=== PATIENT | male | born 1965 | race African-American/Black ===

== ENCOUNTER 2017-03-18 15:40 | Emergency (ER) | payer OTHER ==
[~2017-03-18] VITALS: Ht 180.3 cm; Wt 86.2 kg
[2017-03-18 16:04] VITALS: BP 141/85
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
[2017-03-18] MEDS ORDERED: CYCL10TA2 PO (16:56)
[2017-03-18] MEDS ORDERED: CYCLOBENZAPRINE 10 MG TABLET. PO ONE (17:00)
[2017-03-18] MEDS ORDERED: IBUPROFEN 800 MG TABLET. PO ONE (17:00)
== END 2017-03-18 17:05 | disposition home or self-care (01) ==
LOC: ER 15:40
DX: M54.5 Low back pain (principal); M54.2 Cervicalgia; M54.6 Pain in thoracic spine; Z87.442 Personal history of urinary calculi; V49.49XA Driver injured in collision with other motor vehicles in traffic accident, initial encounter; Y93.89 Activity, other specified; Y92.89 Other specified places as the place of occurrence of the external cause; Y99.8 Other external cause status
CPT/HCPCS: 99283

== ENCOUNTER 2019-08-16 17:04 | Emergency (ER) | payer SELFPAY ==
[~2019-08-16] VITALS: Ht 180.3 cm; Wt 86.2 kg
[~2019-08-16 17:04] MED LIST: CYCL10TA2 PO
[2019-08-16 17:23] VITALS: BP 153/101
--- NOTE | 2019-08-16 17:30 | PHYS DOC ---
Past Medical History Past Medical History: Kidney Stone, Other Additional Past Medical Histor: BLOOD CLOTS Past Surgical History: Other Additional Past Surgical Histo: LITHOTRIPSY Alcohol Use: Occasionally Drug Use: None Adult General Chief Complaint Chief Complaint: COUGH HPI HPI Patient is a 54 year old female that presents to emergency department stating he's been having cough, and chills that been ongoing for 3 days. Patient also states his been having some runny nose and congestion as well. The patient rates his pain 8 out of 10 in severity and states the pain just from coughing. Denies taking medicine prior to arrival. Review of Systems Review of Systems Constitutional: Reports fever or chills [] Eyes: Denies change in visual acuity, redness, or eye pain [] HENT: Reports nasal congestion and runny nose. Respiratory: Reports cough. Cardiovascular: No additional information not addressed in HPI [] GI: Denies abdominal pain, nausea, vomiting, bloody stools or diarrhea [] : Denies dysuria or hematuria [] Musculoskeletal: Denies back pain or joint pain [] Integument: Denies rash or skin lesions [] Neurologic: Denies headache, focal weakness or sensory changes [] Endocrine: Denies polyuria or polydipsia [] Complete systems were reviewed and found to be within normal limits, except as documented in this note. Allergies Allergies Allergies Coded Allergies Type Severity Reaction Last Updated Verified No Known Drug Allergies 11/07/15 No Physical Exam Physical Exam Constitutional: Well developed, well nourished, no acute distress, non-toxic appearance. [] HENT: Normocephalic, atraumatic, bilateral external ears normal, tonsils are erythematous, oropharynx moist, no oral exudates, nose turbinates inflamed.] Eyes: PERRLA, EOMI, conjunctiva normal, no discharge. [] Neck: Normal range of motion, no tenderness, supple, no stridor. [] Cardiovascular:Heart rate regular rhythm, no murmur [] Lungs & Thorax: Bilateral breath sounds clear to auscultation [] Abdomen: Bowel sounds normal, soft, no tenderness, no masses, no pulsatile mas ses. [] Skin: Warm, dry, no erythema, no rash. [] Back: No tenderness, no CVA tenderness. [] Extremities: No tenderness, no cyanosis, no clubbing, ROM intact, no edema. [] Neurologic: Alert and oriented X 3, normal motor function, normal sensory function, no focal deficits noted. [] Psychologic: Affect normal, judgement normal, mood normal. [] Current Patient Data Vital Signs Vital Signs Date Time Temp Pulse Resp B/P (MAP) Pulse Ox O2 Delivery O2 Flow Rate FiO2 08/16/19 17:23 98.6 99 20 153/101 (118) 98 Room Air 98.6 Lab Values Laboratory Tests Test 08/16/19 17:50 White Blood Count 4.5 x10^3/uL (4.0-11.0) Red Blood Count 5.47 x10^6/uL (4.30-5.70) Hemoglobin 15.6 g/dL (13.0-17.5) Hematocrit 47.1 % (39.0-53.0) Mean Corpuscular Volume 86 fL (79-100) Mean Corpuscular Hemoglobin 29 pg (25-35) Mean Corpuscular Hemoglobin Concent 33 g/dL (31-37) Red Cell Distribution Width 14.0 % (11.5-14.5) Platelet Count 299 x10^3/uL (140-400) Neutrophils (%) (Auto) 37 % (31-73) Lymphocytes (%) (Auto) 48 % (24-48) Monocytes (%) (Auto) 8 % (0-9) Eosinophils (%) (Auto) 6 % (0-3) H Basophils (%) (Auto) 1 % (0-3) Neutrophils # (Auto) 1.7 x10^3/uL (1.8-7.7) L Lymphocytes # (Auto) 2.1 x10^3/uL (1.0-4.8) Monocytes # (Auto) 0.4 x10^3/uL (0.0-1.1) Eosinophils # (Auto) 0.3 x10^3/uL (0.0-0.7) Basophils # (Auto) 0.0 x10^3/uL (0.0-0.2) Sodium Level 142 mmol/L (136-145) Potassium Level 4.2 mmol/L (3.5-5.1) Chloride Level 106 mmol/L (98-107) Carbon Dioxide Level 25 mmol/L (21-32) Anion Gap 11 (6-14) Blood Urea Nitrogen 9 mg/dL (8-26) Creatinine 1.0 mg/dL (0.7-1.3) Estimated GFR (Cockcroft-Gault) 93.9 BUN/Creatinine Ratio 9 (6-20) Glucose Level 100 mg/dL (70-99) H Lactic Acid Level 0.9 mmol/L (0.4-2.0) Calcium Level 8.8 mg/dL (8.5-10.1) Total Bilirubin 0.5 mg/dL (0.2-1.0) Aspartate Amino Transferase (AST) 20 U/L (15-37) Alanine Aminotransferase (ALT) 36 U/L (16-63) Alkaline Phosphatase 59 U/L (46-116) Total Protein 8.1 g/dL (6.4-8.2) Albumin 4.0 g/dL (3.4-5.0) Albumin/Globulin Ratio 1.0 (1.0-1.7) Laboratory Tests 08/16/19 17:50 Laboratory Tests 08/16/19 17:50 EKG EKG [] Radiology/Procedures Radiology/Procedures [][facility] [address] [place] [address] IMAGING REPORT Signed PATIENT: DELFIN ZACARIAS ACCOUNT: [id number] : 1965 LOCATION: ER AGE: 54 SEX: M EXAM STATUS: REG ER ORD. PHYSICIAN: TOÑO FRENCH APRN REASON: cough, fever PROCEDURE: CHEST PA & LATERAL EXAM: Chest, 2 views. HISTORY: Cough and fever. COMPARISON: 11/08/2009 FINDINGS: 2 views of the chest are obtained. There is no infiltrate, pleural effusion or pneumothorax. The heart is normal in size. IMPRESSION: No acute pulmonary finding. Electronically signed by: Katerin Lopez MD (08/16/2019 5:52 PM) [facility] DICTATED and SIGNED BY: KATERIN LOPEZ MD DATE: 08/16/19 567 Course & Med Decision Making Course & Med Decision Making Pertinent Labs and Imaging studies reviewed. (See chart for details) Will get labs, and chest x-ray to evaluate for pneumonia. Labs and chest x-ray are unremarkable. Will d/c home. Appears to have URI. Maxime Disclaimer Maxime Disclaimer This electronic medical record was generated, in whole or in part, using a voice recognition dictation system. Departure Departure Impression: Primary Impression: Cough Disposition: HOME, SELF-CARE Condition: STABLE Referrals: UNKNOWN PCP NAME (PCP) Patient Instructions: Cough, Adult Additional Instructions: Thank you for visiting [facility]. We appreciate you trusting us with your care. If any additional problems come up don't hesitate to return to visit us. Please follow up with your primary care provider so they can plan additional care if needed and know about the problem that you had. If symptoms worsen come back to the Emergency Department. Any concerning symptoms that start such as chest pain, shortness of air, weakness or numbness on one side of the body, running high fevers or any other concerning symptoms return to the ER. Please fill your medications at any pharmacy and follow the prescription instructions. Please take Zyrtec and Mucinex per label instructions. Scripts Benzonatate (TESSALON PERLE) 100 Mg Capsule 1 CAP PO TID PRN for COUGH, #21 CAP Prov: TOÑO FRENCH APRN 08/16/19 TOÑO FRENCH APRN Aug 16, 2019 17:30
--- NOTE | 2019-08-16 17:54 | RAD ---
EXAM: Chest, 2 views. HISTORY: Cough and fever. COMPARISON: 11/08/2009 FINDINGS: 2 views of the chest are obtained. There is no infiltrate, pleural effusion or pneumothorax. The heart is normal in size. IMPRESSION: No acute pulmonary finding. Electronically signed by: Katerin Lopez MD (08/16/2019 5:52 PM) [facility]
[2019-08-16 18:11] LABS: BASO % 1 % (0-3); EOS # 0.3 x10^3/uL (0.0-0.7); EOS % 6 % (0-3); HEMATOCRIT 47.1 % (39.0-53.0); HEMOGLOBIN 15.6 g/dL (13.0-17.5); LYMPH # 2.1 x10^3/uL (1.0-4.8); LYMPH % 48 % (24-48); MEAN CORPUSCULAR HEMOGLOBIN 29 pg (25-35); MEAN CORPUSCULAR HGB CONC 33 g/dL (31-37); MEAN CORPUSCULAR VOLUME 86 fL (79-100); MONO # 0.4 x10^3/uL (0.0-1.1); MONO % 8 % (0-9); NEUT # 1.7 x10^3/uL (1.8-7.7); NEUT % 37 % (31-73); PLATELET COUNT 299 x10^3/uL (140-400); RED BLOOD COUNT 5.47 x10^6/uL (4.30-5.70); WHITE BLOOD COUNT 4.5 x10^3/uL (4.0-11.0)
[2019-08-16 18:19] LABS: CALCIUM 8.8 mg/dL (8.5-10.1); GFR 93.9; POTASSIUM 4.2 mmol/L (3.5-5.1)
[2019-08-16 18:33] LABS: TOTAL BILIRUBIN 0.5 mg/dL (0.2-1.0); TOTAL PROTEIN 8.1 g/dL (6.4-8.2)
[2019-08-16] MEDS ORDERED: DEXAMETHASONE 4 MG TABLET PO STA (18:58)
[2019-08-16] MEDS ORDERED: BENZ100C PO (19:00)
== END 2019-08-16 19:16 | disposition home or self-care (01) ==
LOC: ER 17:04
DX: R05 Cough (principal); R50.9 Fever, unspecified; R09.81 Nasal congestion; R09.89 Other specified symptoms and signs involving the circulatory and respiratory systems
CPT/HCPCS: 36415; 71046; 80053; 83605; 85025; 99285; J8540

== ENCOUNTER 2019-09-20 15:19 | Emergency (ER) | payer SELFPAY ==
[~2019-09-20] VITALS: Ht 180.3 cm; Wt 86.2 kg
[~2019-09-20 15:19] MED LIST changes: +BENZ100C PO
[2019-09-20] MEDS ORDERED: ORPHENADRINE CITRATE 60 MG/2 ML VIAL. IV ONE (16:45)
[2019-09-20] MEDS ORDERED: KETOROLAC 15 MG/ML VIAL. IV ONE (16:45)
[2019-09-20] MEDS ORDERED: ORPHENADRINE CITRATE 60 MG/2 ML VIAL. IM ONE (16:45)
[2019-09-20] MEDS ORDERED: KETOROLAC 60 MG/2 ML VIAL. IM ONE (16:45)
[2019-09-20 16:47] LABS: BILIRUBIN,URINE NEGATIVE (NEG); CLARITY,URINE CLEAR; COLOR,URINE YELLOW; NITRITE,URINE NEGATIVE (NEG); PH,URINE 5.5; PROTEIN,URINE NEGATIVE (NEG-TRACE); UROBILINOGEN,URINE 0.2 mg/dL (0.2 mg/dL)
[2019-09-20 16:59] LABS: BACTERIA,URINE 0 /HPF (0-FEW); RBC,URINE RARE /HPF (0-2); WBC,URINE RARE /HPF (0-4)
--- NOTE | 2019-09-20 17:10 | PHYS DOC ---
Past Medical History Past Medical History: Kidney Stone, Other Additional Past Medical Histor: BLOOD CLOTS Past Surgical History: Other Additional Past Surgical Histo: LITHOTRIPSY Alcohol Use: Occasionally Drug Use: None Adult General Chief Complaint Chief Complaint: BACK PAIN - NO INJURY HPI HPI Patient is a 54 year old AA male who presents to the emergency department with complaints of low back pain that radiates into his left groin and left leg for the last 3 days. Patient denies any recent injury or heavy lifting. He denies any saddle anesthesia or loss of bowel/bladder control. Patient states that the pain increases when he moves or tries to lift his left leg. He denies any increased urinary frequency, hematuria, dysuria, or bowel/bladder incontinence. Currently rates his discomfort a 10 out of 10 on the pain scale, he denies any alleviating factors. Patient also denies any chest pain, dizziness, shortness of breath, fever, numbness, tingling, or weakness. All other ROS is neg unless otherwise noted in HPI. Review of Systems Review of Systems See Above Current Medications Current Medications Current Medications Medications (Trade) Dose Ordered Sig/Miguelangel Start Time Stop Time Status Last Admin Dose Admin Ketorolac Tromethamine (Toradol 15mg Vial) 30 mg 1X ONCE 09/20/19 16:45 09/20/19 16:46 DC 09/20/19 16:56 30 MG Ketorolac Tromethamine (Toradol Im) 30 mg 1X ONCE 09/20/19 16:45 09/20/19 16:36 DC Orphenadrine Citrate (Norflex) 60 mg 1X ONCE 09/20/19 16:45 09/20/19 16:46 DC 09/20/19 16:56 60 MG Allergies Allergies Allergies Coded Allergies Type Severity Reaction Last Updated Verified No Known Drug Allergies 11/07/15 No Physical Exam Physical Exam See Above Constitutional: Well developed, well nourished, no acute distress, non-toxic appearance. [] HENT: Normocephalic, atraumatic, bilateral external ears normal, nose normal. [] Eyes: PERRLA, EOMI, conjunctiva normal, no discharge. [] Neck: Normal range of motion, no stridor. [] Cardiovascular:Heart rate regular tachycardic rhythm, no murmur [] Lungs & Thorax: Bilateral breath sounds clear to auscultation [] Abdomen: soft, no tenderness, no masses Skin: Warm, dry, no erythema, no rash. [] Back: Bilateral lumbar paraspinal TTP and no bony tenderness, no CVA tenderness; reports increased pain with straight leg left of left leg. [] Extremities: No cyanosis, ROM intact, no edema. [] Neurologic: Alert and oriented X 3, no focal deficits noted. [] Psychologic: Affect normal, judgement normal, mood normal. [] Current Patient Data Vital Signs Vital Signs Date Time Temp Pulse Resp B/P (MAP) Pulse Ox O2 Delivery O2 Flow Rate FiO2 09/20/19 16:15 98.9 131 18 150/106 (121) 97 Room Air 98.9 Lab Values Laboratory Tests Test 09/20/19 16:15 Urine Collection Type Void Urine Color Yellow Urine Clarity Clear Urine pH 5.5 Urine Specific [place] 1.020 Urine Protein Negative mg/dL (NEG-TRACE) Urine Glucose (UA) Negative mg/dL (NEG) Urine Ketones (Stick) Negative mg/dL (NEG) Urine Blood Negative (NEG) Urine Nitrite Negative (NEG) Urine Bilirubin Negative (NEG) Urine Urobilinogen Dipstick 0.2 mg/dL (0.2 mg/dL) Urine Leukocyte Esterase Negative (NEG) Urine RBC Rare /HPF (0-2) Urine WBC Rare /HPF (0-4) Urine Squamous Epithelial Cells None /LPF Urine Bacteria 0 /HPF (0-FEW) Urine Mucus Marked /LPF EKG EKG 1659- sinus tachycardia rate 108 with left atrial abnormality, left anterior fascicular block, no STEMI, read by Dr. Olson.[] Radiology/Procedures Radiology/Procedures [] Course & Med Decision Making Course & Med Decision Making Pertinent Labs and Imaging studies reviewed. (See chart for details) is 54-year-old -[place] male who presented to the emergency department with complaints of low back pain for the last 3 days it radiated into his left leg and increased with movement. His heart rate was in the 130s on arrival. EKG was done that showed sinus tachycardia no acute ST changes. He was given 2 mg of IV Norflex and 30 mg of IV Toradol. Patient reported that his pain was decreasing after those medications. The patient's heart rate decreased to 102 and his blood pressure was normal. Prescriptions written for naproxen and Flexeril. Patient was instructed to follow-up with his primary care doctor for further evaluation and treatment of his back pain. Patient verbalized an un derstanding of home care, medications, follow-up, and return to ED instructions and was in agreement with the plan of care. [] Dragon Disclaimer Dragon Disclaimer This electronic medical record was generated, in whole or in part, using a voice recognition dictation system. Departure Departure Impression: Primary Impression: Acute low back pain with left-sided sciatica Disposition: HOME, SELF-CARE Condition: STABLE Referrals: VIRGINIA CRUZ,AYANNA Moreno MD (PCP) Patient Instructions: Back Pain, Adult, [id number], Sciatica with Rehab- [facility] Additional Instructions: Fill the prescription(s) and use as directed. Apply heat or ice for to sore areas as needed for comfort. Activity as tolerated. Follow up with your primary care doctor this week if symptoms persist, return to the ER if symptoms worsen. Scripts Naproxen (NAPROXEN) 500 Mg Tablet 1 TAB PO BID PRN for PAIN for 10 Days, #20 TAB 0 Refills Prov: JAKI JACKSON APRN 09/20/19 Cyclobenzaprine Hcl (CYCLOBENZAPRINE HCL) 10 Mg Tablet 10 MG PO TID PRN for PAIN for 10 Days, #30 TAB 0 Refills Prov: JAKI JACKSON APRN 09/20/19 Problem Qualifiers Primary Impression: Acute low back pain with left-sided sciatica Back pain laterality: bilateral Qualified Codes: M54.42 - Lumbago with sciatica, left side JAKI JACKSON APRN Sep 20, 2019 17:10
[2019-09-20] MEDS ORDERED: CYCL10TA2 PO (17:40)
[2019-09-20] MEDS ORDERED: NAPR-514 PO (17:40)
[2019-09-20 17:45] VITALS: BP 152/90
--- NOTE | 2019-09-21 07:28 | EKG ---
[facility] [address] [place] [address] Test Date: 2019-09-20 Test Time: 16:59:04 Pat Name: DELFIN ZACARIAS Department: Room: Gender: Superintendent House: : 1965 Requested By: JAKI JACKSON Order Number: [id number] Reading MD: Measurements Intervals [place] Rate: 107 P: 33 AK: 152 QRS: -114 QRSD: 86 T: 61 QT: 320 QTc: 432 Interpretive Statements SINUS TACHYCARDIA LEFT ATRIAL ABNORMALITY ABNORMAL RIGHT SUPERIOR AXIS DEVIATION R-S TRANSITION ZONE IN V LEADS DISPLACED TO THE LEFT S1,S2,S3 PATTERN LEFT ANTERIOR FASCICULAR BLOCK ABNORMAL ECG No previous ECG available for comparison
== END 2019-09-20 18:06 | disposition home or self-care (01) ==
LOC: ER 15:19
DX: M54.42 Lumbago with sciatica, left side (principal); Z87.442 Personal history of urinary calculi; Z98.890 Other specified postprocedural states
CPT/HCPCS: 81001; 93005; 96374; 96375; 99285; J1885; J2360

== ENCOUNTER 2020-01-20 16:45 | Emergency (ER) | payer SELFPAY ==
[~2020-01-20] VITALS: Ht 180.3 cm; Wt 80.0 kg
[~2020-01-20 16:45] MED LIST changes: +NAPR-514 PO
--- NOTE | 2020-01-20 17:00 | PHYS DOC ---
Past Medical History Past Medical History: Kidney Stone, Other Additional Past Medical Histor: BLOOD CLOTS (DARYL FRENCH APRN) Past Surgical History: Other Additional Past Surgical Histo: LITHOTRIPSY (DARYL FRECNH APRN) Smoking Status: Never Smoker Alcohol Use: Occasionally Drug Use: None (DARYL FRENCH APRN) Adult General Chief Complaint Chief Complaint: SHORTNESS OF BREATH [facility] HPI Patient is a 54 year old male who presents with cough and shortness of breath is been ongoing for last several days. Patient has subjective fever, denies any nausea, vomiting, diarrhea, loss of taste, loss of smell, fatigue. Patient's got tachycardia on arrival to the ER. States he attributed the shortness of breath due to smoking. Patient states he is a former smoker. Patient also has a history of blood clots. Denies any sick contacts or travel. Complete ROS were reviewed and found to be within normal limits, except as documented in the HPI (DARYL FRENCH APRN) Current Medications Current Medications Current Medications Medications (Trade) Dose Ordered Sig/Miguelangel Start Time Stop Time Status Last Admin Dose Admin Iohexol (Omnipaque 350 Mg/ml) 100 ml 1X ONCE 01/20/20 19:15 01/20/20 19:23 DC Sodium Chloride 500 ml @ 500 mls/hr 1X ONCE 01/20/20 18:30 01/20/20 19:29 DC 01/20/20 19:08 500 MLS/HR (GOLLAPALLI,DERREK E DO) Allergies Allergies Allergies Coded Allergies Type Severity Reaction Last Updated Verified No Known Drug Allergies 11/07/15 No (BRITTADERREK E DO) Physical Exam Physical Exam Constitutional: Well developed, well nourished, no acute distress, non-toxic appearance. [] HENT: Normocephalic, atraumatic, bilateral external ears normal, oropharynx moist, no oral exudates, nose normal. [] Cardiovascular:Heart rate regular rhythm, no murmur [] Lungs & Thorax: Bilateral breath sounds clear to auscultation [] Neurologic: Alert and oriented X 3, normal motor function, normal sensory function, no focal deficits noted. [] Psychologic: Affect normal, judgement normal, mood normal. [] (DARYL FRENCH APRN) Current Patient Data Vital Signs Vital Signs Date Time Temp Pulse Resp B/P (MAP) Pulse Ox O2 Delivery O2 Flow Rate FiO2 01/20/20 21:00 90 164/101 (122) 97 01/20/20 16:50 99.0 18 Room Air 99.0 ([facility] Lab Values Laboratory Tests Test 01/20/20 17:20 White Blood Count 3.7 x10^3/uL (4.0-11.0) L Red Blood Count 5.02 x10^6/uL (4.30-5.70) Hemoglobin 14.6 g/dL (13.0-17.5) Hematocrit 43.4 % (39.0-53.0) Mean Corpuscular Volume 87 fL (79-100) Mean Corpuscular Hemoglobin 29 pg (25-35) Mean Corpuscular Hemoglobin Concent 34 g/dL (31-37) Red Cell Distribution Width 13.7 % (11.5-14.5) Platelet Count 268 x10^3/uL (140-400) Neutrophils (%) (Auto) 50 % (31-73) Lymphocytes (%) (Auto) 40 % (24-48) Monocytes (%) (Auto) 6 % (0-9) Eosinophils (%) (Auto) 4 % (0-3) H Basophils (%) (Auto) 0 % (0-3) Neutrophils # (Auto) 1.9 x10^3/uL (1.8-7.7) Lymphocytes # (Auto) 1.5 x10^3/uL (1.0-4.8) Monocytes # (Auto) 0.2 x10^3/uL (0.0-1.1) Eosinophils # (Auto) 0.1 x10^3/uL (0.0-0.7) Basophils # (Auto) 0.0 x10^3/uL (0.0-0.2) Prothrombin Time 12.4 SEC (11.7-14.0) Prothrombin Time INR 1.0 (0.8-1.1) Activated Partial Thromboplast Time 25 SEC (24-38) D-Dimer (Anita) < 0.27 ug/mlFEU Sodium Level 142 mmol/L (136-145) Potassium Level 3.8 mmol/L (3.5-5.1) Chloride Level 106 mmol/L (98-107) Carbon Dioxide Level 27 mmol/L (21-32) Anion Gap 9 (6-14) Blood Urea Nitrogen 12 mg/dL (8-26) Creatinine 1.3 mg/dL (0.7-1.3) Estimated GFR (Cockcroft-Gault) 69.3 BUN/Creatinine Ratio 9 (6-20) Glucose Level 201 mg/dL (70-99) H Lactic Acid Level 3.6 mmol/L (0.4-2.0) H Calcium Level 8.3 mg/dL (8.5-10.1) L Total Bilirubin 0.3 mg/dL (0.2-1.0) Aspartate Amino Transferase (AST) 24 U/L (15-37) Alanine Aminotransferase (ALT) 45 U/L (16-63) Alkaline Phosphatase 48 U/L (46-116) Troponin I Quantitative < 0.017 ng/mL (0.000-0.055) JW-Rsp-X-Type Natriuretic Peptide 27 pg/mL (0-124) Total Protein 6.6 g/dL (6.4-8.2) Albumin 3.4 g/dL (3.4-5.0) Albumin/Globulin Ratio 1.1 (1.0-1.7) Procalcitonin < 0.10 ng/mL (0.00-0.10) Laboratory Tests 01/20/20 17:20 Laboratory Tests 01/20/20 17:20 ([facility] ) Lab Values Laboratory Tests Test 01/20/20 17:20 White Blood Count 3.7 x10^3/uL (4.0-11.0) L Red Blood Count 5.02 x10^6/uL (4.30-5.70) Hemoglobin 14.6 g/dL (13.0-17.5) Hematocrit 43.4 % (39.0-53.0) Mean Corpuscular Volume 87 fL (79-100) Mean Corpuscular Hemoglobin 29 pg (25-35) Mean Corpuscular Hemoglobin Concent 34 g/dL (31-37) Red Cell Distribution Width 13.7 % (11.5-14.5) Platelet Count 268 x10^3/uL (140-400) Neutrophils (%) (Auto) 50 % (31-73) Lymphocytes (%) (Auto) 40 % (24-48) Monocytes (%) (Auto) 6 % (0-9) Eosinophils (%) (Auto) 4 % (0-3) H Basophils (%) (Auto) 0 % (0-3) Neutrophils # (Auto) 1.9 x10^3/uL (1.8-7.7) Lymphocytes # (Auto) 1.5 x10^3/uL (1.0-4.8) Monocytes # (Auto) 0.2 x10^3/uL (0.0-1.1) Eosinophils # (Auto) 0.1 x10^3/uL (0.0-0.7) Basophils # (Auto) 0.0 x10^3/uL (0.0-0.2) Prothrombin Time 12.4 SEC (11.7-14.0) Prothrombin Time INR 1.0 (0.8-1.1) Activated Partial Thromboplast Time 25 SEC (24-38) D-Dimer (Anita) < 0.27 ug/mlFEU Sodium Level 142 mmol/L (136-145) Potassium Level 3.8 mmol/L (3.5-5.1) Chloride Level 106 mmol/L (98-107) Carbon Dioxide Level 27 mmol/L (21-32) Anion Gap 9 (6-14) Blood Urea Nitrogen 12 mg/dL (8-26) Creatinine 1.3 mg/dL (0.7-1.3) Estimated GFR (Cockcroft-Gault) 69.3 BUN/Creatinine Ratio 9 (6-20) Glucose Level 201 mg/dL (70-99) H Lactic Acid Level 3.6 mmol/L (0.4-2.0) H Calcium Level 8.3 mg/dL (8.5-10.1) L Total Bilirubin 0.3 mg/dL (0.2-1.0) Aspartate Amino Transferase (AST) 24 U/L (15-37) Alanine Aminotransferase (ALT) 45 U/L (16-63) Alkaline Phosphatase 48 U/L (46-116) Troponin I Quantitative < 0.017 ng/mL (0.000-0.055) YJ-Mga-F-Type Natriuretic Peptide 27 pg/mL (0-124) Total Protein 6.6 g/dL (6.4-8.2) Albumin 3.4 g/dL (3.4-5.0) Albumin/Globulin Ratio 1.1 (1.0-1.7) Procalcitonin < 0.10 ng/mL (0.00-0.10) Laboratory Tests 01/20/20 17:20 Laboratory Tests 01/20/20 17:20 (DARYL FRENCH APRN) EKG EKG EKG interpreted by Dr. Lind Sinus tachycardia with rate of 116. (DARYL FRENCH APRN) Radiology/Procedures Radiology/Procedures [facility] [address] [place] [address] IMAGING REPORT Signed PATIENT: DELFIN ZACARIAS ACCOUNT: [id number] : 1965 LOCATION: ER AGE: 54 SEX: M EXAM STATUS: REG ER ORD. PHYSICIAN: DARYL FRENCH APRN REASON: shortness of breath, tachycardia, hx of blood clots PROCEDURE: CT ANGIOGRAPHY CHEST CTA scan of the Chest with Contrast (Pulmonary Embolism protocol) 01/20/2020 Clinical History: Shortness of breath. Tachycardia. Technique: After the intravenous administration of 800 cc of Omnipaque 300, contiguous, 0.625 mm axial sections were obtained through the chest. 2 mm axial and 3D MIP coronal and sagittal reconstructed images were obtained. One or more of the following individualized dose reduction techniques were utilized for this study: 1. Automated exposure control. 2. Adjustment of the mA and/or kV according to patient size. 3. Use of iterative reconstruction technique. Findings: There is an is made to portable chest radiograph performed earlier today. Suboptimal opacification of the pulmonary arteries with contrast is seen limiting the sensitivity of this study. No definite filling defect is seen within the major branches of either pulmonary artery. There is no definite CT evidence of pulmonary embolism. The heart is normal in size. The thoracic aorta tapers normally. Calcified right hilar lymph nodes are seen. Minimal dependent subsegmental atelectasis is seen involving both lungs. No area of consolidation, pleural effusion or pneumothorax is seen. A 7 mm calcified granuloma seen involving the right lower lobe. Impression: There is no definite CT evidence of pulmonary embolism. Electronically signed by: Medhat Berg MD (01/20/2020 8:04 PM) [id number] DICTATED and SIGNED BY: MEDHAT BERG MD DATE: 01/20/202003 [][facility] [address] [place] [address] IMAGING REPORT Signed PATIENT: DELFIN ZACARIAS ACCOUNT: [id number] : 1965 LOCATION: ER AGE: 54 SEX: M EXAM STATUS: REG ER ORD. PHYSICIAN: DARYL FRENCH APRN REASON: cough, shortness of breath PROCEDURE: PORTABLE CHEST 1V Single view chest dated 01/20/2020: Comparison made to 08/16/2019. Clinical Indication: Cough and shortness of breath. Findings: Single upright portable exam of the chest was performed. Heart size and mediastinal contours are within normal limits given technique. The lungs are clear without evidence of focal consolidation. Vascular interstitium is within normal limits. Impression:: Negative portable chest. Electronically signed by: Daryl Manzano MD (01/20/2020 5:48 PM) [id number] DICTATED and SIGNED BY: DARYL MANZANO MD DATE: 01/20/20 1748 (DARYL FRENCH APRN) Course & Med Decision Making Course & Med Decision Making Pertinent Labs and Imaging studies reviewed. (See chart for details) We will get chest x-ray, labs, including d-dimer, EKG. Also give a bag of fluids. Work-up was unremarkable however I determined that the patient has a history of blood clots. This does not rule out a PE even though the d-dimer is negative. I did show the high risk patients with a negative d-dimer can have a PE up to 31% of the time. Consult Dr. Lind who agreed that a CT was appropriate. Lactic acid is elevated likely due to dehydration. Work-up is otherwise unremarkable. Neutrophils are not elevated, lymphocytes are not elevated, white blood cell count is only 3.7. CTA of the chest is unremarkable. The patient's heart rate has gone down fluids likely patient was dehydrated. Discussed admission versus going home with the patient patient agrees and is shared decision making that he would like to go home. We will discharge the patient home. Gave instructions to self isolate at home, also gave instructions of his shortness of breath gets worse to return to the ER. (DARYL FRENCH APRN) Dragon Disclaimer Dragon Disclaimer This electronic medical record was generated, in whole or in part, using a voice recognition dictation system. (DARYL FRENCH APRN) Attending Signature I have participated in the care of this patient and I have reviewed and agree with all pertinent clinical information above including history, exam, and recommendations. (DERREK CALLEJAS DO) Departure Departure Impression: Primary Impression: Suspected 2019 novel coronavirus infection Disposition: HOME, SELF-CARE Condition: STABLE Referrals: AYANNA COLEMAN SR, MD (PCP) Patient Instructions: Viral Syndrome Additional Instructions: Thank you for visiting [facility] We appreciate you trusting us with your care. If any additional problems come up don't hesitate to return to visit us. Please follow up with your primary care provider so they can plan additional care if needed and know about the problem that you had. If symptoms worsen come back to the Emergency Department. Any concerning symptoms that start such as chest pain, shortness of air, weakness or numbness on one side of the body, running high fevers or any other concerning symptoms return to the ER. You have a viral syndrome which may include symptoms like muscle aches, fevers, chills, runny nose, cough, sneezing, sore throat, vomiting, or diarrhea. One of the potential viruses that you may have is SARS-CoV-2, the virus that causes C OVID-19, also known as the Coronavirus. You are just as likely to have a different viral infection such as the common cold, flu, etc. Most patients with the Coronavirus have mild symptoms and recover on their own. Resting, staying hydrated, and sleep from known cases can be helpful. As of todays visit, you are well enough to go home and treat your symptoms with oral fluids and over the counter medications. Coronavirus testing is not performed on most people with mild symptoms who are being discharged from the emergency department. If Coronavirus testing was performed the results will not be available for possibly up to 2-3 days. If your result is positive you will be contacted. Please follow the following precautions at home: 1) Stay home except to get medical care. 2) As advised by the CDC we recommend you stay in your home and minimize contact with other people. We do not want you to spread the infection. 3) Those who are older or have significant medical issues may have more severe symptoms from this infection. We recommend self-isolation,FOR AT LEAST 7 DAYS after your 1st day of symptoms. AFTER you feel better please wait AT LEAST ANOTHER WEEK before returning to regular activities and being around other people! 4) IF you become sicker and have difficulty breathing, chest pain, unable to eat/drink, severe vomiting, diarrhea, or weakness you may need to return to the Emergency Department. 5) You should restrict activities outside your home, except for getting medic al care. DO NOT go to work, school, or public areas. Avoid using public transportation, ride sharing, or taxis. 6) Separate yourself from other people in your home. You should use a separate bathroom if possible. 7) Avoid sharing personal household items such as dishes, cups, eating utensils, towels, etc. 8) Clean all high touch surfaces every day (door knobs, counter tops, etc). Use a household cleaning spray or wipe per label instructions. 9) Clean your hands often. Wash your hands with soap and water for at least 20 seconds. 10) Cover your mouth and nose with a tissue when you cough or sneeze. 11) Throw used tissues in a trash can and immediately wash your hands. For additional resources please visit the CDC website or the [facility] ([phone]). DARYL FRENCH APRN Jan 20, 2020 17:00 DERREK CALLEJAS DO Jan 21, 2020 08:17
[2020-01-20] MEDS: IV NORMAL SALINE 1000ML BAG 1,000 ML IV ONE ×2 (17:20→19:08)
[2020-01-20 17:33] LABS: BASO % 0 % (0-3); EOS # 0.1 x10^3/uL (0.0-0.7); EOS % 4 % (0-3); HEMATOCRIT 43.4 % (39.0-53.0); HEMOGLOBIN 14.6 g/dL (13.0-17.5); LYMPH # 1.5 x10^3/uL (1.0-4.8); LYMPH % 40 % (24-48); MEAN CORPUSCULAR HEMOGLOBIN 29 pg (25-35); MEAN CORPUSCULAR HGB CONC 34 g/dL (31-37); MEAN CORPUSCULAR VOLUME 87 fL (79-100); MONO # 0.2 x10^3/uL (0.0-1.1); MONO % 6 % (0-9); NEUT # 1.9 x10^3/uL (1.8-7.7); NEUT % 50 % (31-73); PLATELET COUNT 268 x10^3/uL (140-400); RED BLOOD COUNT 5.02 x10^6/uL (4.30-5.70); RED CELL DISTRIBUTION WIDTH 13.7 % (11.5-14.5); WHITE BLOOD COUNT 3.7 x10^3/uL (4.0-11.0)
[2020-01-20 17:43] LABS: CALCIUM 8.3 mg/dL (8.5-10.1); CREATININE 1.3 mg/dL (0.7-1.3); GFR 69.3; POTASSIUM 3.8 mmol/L (3.5-5.1)
[2020-01-20 17:45] LABS: PARTIAL THROMBOPLASTIN TIME 25 SEC (24-38); PROTHROMBIN TIME PATIENT 12.4 SEC (11.7-14.0)
[2020-01-20 17:49] LABS: ALBUMIN 3.4 g/dL (3.4-5.0); ALBUMIN/GLOBULIN RATIO 1.1 (1.0-1.7); TOTAL BILIRUBIN 0.3 mg/dL (0.2-1.0); TOTAL PROTEIN 6.6 g/dL (6.4-8.2)
--- NOTE | 2020-01-20 17:50 | RAD ---
Single view chest dated 01/20/2020: Comparison made to 08/16/2019. Clinical Indication: Cough and shortness of breath. Findings: Single upright portable exam of the chest was performed. Heart size and mediastinal contours are within normal limits given technique. The lungs are clear without evidence of focal consolidation. Vascular interstitium is within normal limits. Impression:: Negative portable chest. Electronically signed by: Daryl Manzano MD (01/20/2020 5:48 PM) [id number]
[2020-01-20 18:11] LABS: D-DIMER < 0.27 ug/mlFEU (0.00-0.50)
[2020-01-20] MEDS: IV NORMAL SALINE 500ML BAG 500 ML IV ONE (19:08)
[2020-01-20] MEDS ORDERED: IOHEXOL 350 MG/ML 100 ML VIAL. IV ONE (19:15)
--- NOTE | 2020-01-20 20:07 | RAD ---
CTA scan of the Chest with Contrast (Pulmonary Embolism protocol) 01/20/2020 Clinical History: Shortness of breath. Tachycardia. Technique: After the intravenous administration of 800 cc of Omnipaque 300, contiguous, 0.625 mm axial sections were obtained through the chest. 2 mm axial and 3D MIP coronal and sagittal reconstructed images were obtained. One or more of the following individualized dose reduction techniques were utilized for this study: 1. Automated exposure control. 2. Adjustment of the mA and/or kV according to patient size. 3. Use of iterative reconstruction technique. Findings: There is an is made to portable chest radiograph performed earlier today. Suboptimal opacification of the pulmonary arteries with contrast is seen limiting the sensitivity of this study. No definite filling defect is seen within the major branches of either pulmonary artery. There is no definite CT evidence of pulmonary embolism. The heart is normal in size. The thoracic aorta tapers normally. Calcified right hilar lymph nodes are seen. Minimal dependent subsegmental atelectasis is seen involving both lungs. No area of consolidation, pleural effusion or pneumothorax is seen. A 7 mm calcified granuloma seen involving the right lower lobe. Impression: There is no definite CT evidence of pulmonary embolism. Electronically signed by: Medhat Berg MD (01/20/2020 8:04 PM) [id number]
[2020-01-20 21:00] VITALS: BP 164/101
--- NOTE | 2020-01-21 05:17 | EKG ---
[facility] [address] [place] [address] Test Date: 2020-01-20 Test Time: 17:12:21 Pat Name: DELFIN ZACARIAS Department: Room: Gender: M [place] Operator: : 1965 Requested By: TOÑO FRENCH Order Number: [id number] Reading MD: Measurements Intervals [place] Rate: 116 P: 103 NM: 150 QRS: -102 QRSD: 84 T: 76 QT: 310 QTc: 431 Interpretive Statements SINUS TACHYCARDIA ABNORMAL RIGHT SUPERIOR AXIS DEVIATION R-S TRANSITION ZONE IN V LEADS DISPLACED TO THE LEFT S1,S2,S3 PATTERN LEFT ANTERIOR FASCICULAR BLOCK QRS(T) CONTOUR ABNORMALITY CONSIDER ANTEROLATERAL MYOCARDIAL DAMAGE ABNORMAL ECG RI6.01 No previous ECG available for comparison
== END 2020-01-20 21:36 | disposition home or self-care (01) ==
LOC: ER 16:45
DX: Z20.828 Contact with and (suspected) exposure to other viral communicable diseases (principal); R05 Cough; R06.02 Shortness of breath; R50.9 Fever, unspecified
CPT/HCPCS: 36415; 71045; 71275; 80053; 83605; 83880; 84145; 84484; 85025; 85379; 85610; 85730; 87040; 93005; 99285; J7030; J7040

== ENCOUNTER 2021-05-23 18:25 | Emergency (ER) | payer SELFPAY ==
[~2021-05-23] VITALS: Ht 180.3 cm; Wt 104.5 kg
--- NOTE | 2021-05-23 20:06 | PHYS DOC ---
Past Medical History Past Medical History: Kidney Stone, Other Additional Past Medical Histor: BLOOD CLOTS, KIDNEY STONES Past Surgical History: Other Additional Past Surgical Histo: LITHOTRIPSY, HERNIA REPAIR Smoking Status: Former Smoker Alcohol Use: Occasionally Drug Use: None General Adult EDM: Chief Complaint: HEADACHE HPI: HPI: Patient is a 56 year old male who present to ER for evaluation headache that started several days ago, headache is sharp stabbing like electric shock that affect bilateral temporal areas in the back of his head. Patient denies any nausea vomiting, no photophobia. Patient denies any, fever, no neck stiffness. Patient denies any history of hypertension. Patient says he had history of headaches in the past. Patient states this is not the worst headache of his life. Review of Systems: Review of Systems: Constitutional: Denies fever or chills. [] Eyes: Denies change in visual acuity. [] HENT: Denies nasal congestion or sore throat. [] Respiratory: Denies cough or shortness of breath. [] Cardiovascular: Denies chest pain or edema. [] GI: Denies abdominal pain, nausea, vomiting, bloody stools or diarrhea. [] : Denies dysuria. [] Musculoskeletal: Denies back pain or joint pain. [] Integument: Denies rash. [] Neurologic: Positive for headache, no focal weakness or numbness no sensory change Endocrine: Denies polyuria or polydipsia. [] Lymphatic: Denies swollen glands. [] Psychiatric: Denies depression or anxiety. [] Heart Score: C/O Chest Pain: N/A Risk Factors: Risk Factors: DM, Current or recent (<one month) smoker, HTN, HLP, family history of CAD, obesity. Risk Scores: Score 0 - 3: 2.5% MACE over next 6 weeks - Discharge Home Score 4 - 6: 20.3% MACE over next 6 weeks - Admit for Clinical Observation Score 7 - 10: 72.7% MACE over next 6 weeks - Early Invasive Strategies Allergies: Allergies: Allergies Coded Allergies Type Severity Reaction Last Updated Verified No Known Drug Allergies 11/07/15 No Physical Exam: PE: Constitutional: Well developed, well nourished, no acute distress, non-toxic appearance. [] HENT: Normocephalic, atraumatic, bilateral external ears normal, oropharynx moist, no oral exudates, nose normal. [] Eyes: PERRLA, EOMI, conjunctiva normal, no discharge. [] Neck: Normal range of motion, no tenderness, supple, no stridor. [] Cardiovascular:Heart rate regular rhythm, no murmur [] Lungs & Thorax: Bilateral breath sounds clear to auscultation [] Abdomen: Bowel sounds normal, soft, no tenderness, no masses, no pulsatile masses. [] Skin: Warm, dry, no erythema, no rash. [] Back: No tenderness, no CVA tenderness. [] Extremities: No tenderness, no cyanosis, no clubbing, ROM intact, no edema. [] Neurologic: Alert and oriented X 3, normal motor function, normal sensory function, no focal deficits noted. [] Psychologic: Affect normal, judgement normal, mood normal. [] Current Patient Data: Labs: Laboratory Tests Test 05/23/21 20:40 White Blood Count 4.7 x10^3/uL Red Blood Count 4.89 x10^6/uL Hemoglobin 14.8 g/dL Hematocrit 42.3 % Mean Corpuscular Volume 87 fL Mean Corpuscular Hemoglobin 30 pg Mean Corpuscular Hemoglobin Concent 35 g/dL Red Cell Distribution Width 13.7 % Platelet Count 276 x10^3/uL Neutrophils (%) (Auto) 39 % Lymphocytes (%) (Auto) 49 % Monocytes (%) (Auto) 6 % Eosinophils (%) (Auto) 5 % Basophils (%) (Auto) 1 % Neutrophils # (Auto) 1.9 x10^3/uL Lymphocytes # (Auto) 2.3 x10^3/uL Monocytes # (Auto) 0.3 x10^3/uL Eosinophils # (Auto) 0.2 x10^3/uL Basophils # (Auto) 0.1 x10^3/uL Erythrocyte Sedimentation Rate 2 Sodium Level 139 mmol/L Potassium Level 3.8 mmol/L Chloride Level 104 mmol/L Carbon Dioxide Level 26 mmol/L Anion Gap 9 Blood Urea Nitrogen 11 mg/dL Creatinine 1.1 mg/dL Estimated GFR (Cockcroft-Gault) 83.5 BUN/Creatinine Ratio 10 Glucose Level 149 mg/dL Calcium Level 8.2 mg/dL Magnesium Level 2.0 mg/dL Total Bilirubin 0.4 mg/dL Aspartate Amino Transf (AST/SGOT) 48 U/L Alanine Aminotransferase (ALT/SGPT) 64 U/L Alkaline Phosphatase 64 U/L C-Reactive Protein, Quantitative 1.6 mg/L Total Protein 6.9 g/dL Albumin 3.3 g/dL Albumin/Globulin Ratio 0.9 Current Medications Medications (Trade) Dose Ordered Sig/Miguelangel Route PRN Reason Start Time Stop Time Status Last Admin Dose Admin Ketorolac Tromethamine (Toradol 30mg Vial) 30 mg 1X ONCE IVP 05/23/21 22:00 05/23/21 22:01 DC 05/23/21 22:00 Methylprednisolone Sodium Succinate (SOLU-Medrol 125MG VIAL) 125 mg 1X ONCE IV 05/23/21 22:00 05/23/21 22:01 DC 05/23/21 21:59 Vital Signs: Vital Signs Date Time Temp Pulse Resp B/P (MAP) Pulse Ox O2 Delivery O2 Flow Rate FiO2 05/23/21 19:07 98.5 104 22 173/102 (122) 97 Room Air 98.5 EKG: EKG: [] Radiology/Procedures: Radiology/Procedures: [][facility] [address] [place] [address] IMAGING REPORT Signed PATIENT: DELFIN ZACARIAS ACCOUNT: [id number] : 1965 LOCATION: ER AGE: 56 SEX: M EXAM STATUS: REG ER ORD. PHYSICIAN: JG ALVARADO DO REASON: headache, hypertension PROCEDURE: CT HEAD WO CONTRAST INDICATION: Reason: headache, hypertension / Spl. Instructions: / History: COMPARISON: None. TECHNIQUE: Axial CT images obtained through the head without intravenous contrast. One or more of the following individualized dose reduction techniques were utilized for this examination: 1. Automated exposure control; 2. Adjustment of the mA and/or kV according to patient size; 3. Use of iterative reconstruction technique. FINDINGS: No intracranial hemorrhage. No significant midline shift. Ventricles and sulci are globally prominent. Scattered foci of low attenuation within the white matter. IMPRESSION: * No acute intracranial hemorrhage. * Scattered regions of low attenuation within the white matter. Non-specific in nature but a common finding and frequently secondary to small vessel ischemic disease. If there is high concern for acute causes clinically MRI can better assess acuity. Electronically signed by: Lexx Spring MD (05/23/2021 9:21 PM) [id number] DICTATED and SIGNED BY: LEXX SPRING MD DATE: 05/23/21 [id number] Course & Med Decision Making: Course & Med Decision Making Pertinent Labs and Imaging studies reviewed. (See chart for details) Patient is a 56-year-old male who present to ER for evaluation of headache. CT scan head did not show any acute problem, and lab work was normal. Patient blood pressure was slightly elevated. Patient will need to follow-up with his family physician for reevaluation of his blood pressure. Patient will be given a prescription for Fioricet to take as needed for headache. Dragon Disclaimer: Dragon Disclaimer: This electronic medical record was generated, in whole or in part, using a voice recognition dictation system. Departure Departure Impression: Primary Impression: Headache Additional Impression: HTN (hypertension) Disposition: HOME / SELF CARE / HOMELESS Condition: STABLE Referrals: VIRGINIA CRUZ,AYANNA Moreno MD (PCP) Please follow up with your family physician in 2 days for reevaluation of your blood pressure. Patient Instructions: General Headache Without Cause, Hypertension Additional Instructions: Thank you for visiting our Emergency Department. We appreciate you trusting us with your care. If any additional problems come up don't hesitate to return to visit us. Please follow up with your primary care provider so they can plan additional care if needed and know about the problem that you had. If symptoms worsen come back to the Emergency Department. Any concerning symptoms that start such as chest pain, shortness of air, weakness or numbness on one side of the body, running high fevers or any other concerning symptoms return to the ER. Scripts Butalb/Acetaminophen/Caffeine ([id number] 50-325-40) 1 Each Tablet 1 EACH PO Q6HRS PRN for HEADACHE, #15 TAB Prov: JG ALVARADO DO 05/23/21 JG ALVARADO DO May 23, 2021 20:06
[2021-05-23 20:53] LABS: BASO # 0.1 x10^3/uL (0.0-0.2); BASO % 1 % (0-3); EOS # 0.2 x10^3/uL (0.0-0.7); EOS % 5 % (0-3); HEMATOCRIT 42.3 % (39.0-53.0); HEMOGLOBIN 14.8 g/dL (13.0-17.5); LYMPH # 2.3 x10^3/uL (1.0-4.8); LYMPH % 49 % (24-48); MEAN CORPUSCULAR HEMOGLOBIN 30 pg (25-35); MEAN CORPUSCULAR HGB CONC 35 g/dL (31-37); MEAN CORPUSCULAR VOLUME 87 fL (79-100); MONO # 0.3 x10^3/uL (0.0-1.1); MONO % 6 % (0-9); NEUT # 1.9 x10^3/uL (1.8-7.7); NEUT % 39 % (31-73); PLATELET COUNT 276 x10^3/uL (140-400); RED BLOOD COUNT 4.89 x10^6/uL (4.30-5.70); RED CELL DISTRIBUTION WIDTH 13.7 % (11.5-14.5); WHITE BLOOD COUNT 4.7 x10^3/uL (4.0-11.0)
[2021-05-23 21:03] LABS: CALCIUM 8.2 mg/dL (8.5-10.1); CREATININE 1.1 mg/dL (0.7-1.3); GFR 83.5; POTASSIUM 3.8 mmol/L (3.5-5.1)
[2021-05-23 21:09] LABS: ALBUMIN 3.3 g/dL (3.4-5.0); ALBUMIN/GLOBULIN RATIO 0.9 (1.0-1.7); C-REACTIVE PROTEIN 1.6 mg/L (0-3.3); TOTAL BILIRUBIN 0.4 mg/dL (0.2-1.0); TOTAL PROTEIN 6.9 g/dL (6.4-8.2)
--- NOTE | 2021-05-23 21:24 | RAD ---
INDICATION: Reason: headache, hypertension / Spl. Instructions: / History: COMPARISON: None. TECHNIQUE: Axial CT images obtained through the head without intravenous contrast. One or more of the following individualized dose reduction techniques were utilized for this examinat ion: 1. Automated exposure control; 2. Adjustment of the mA and/or kV according to patient size; 3 . Use of iterative reconstruction technique. FINDINGS: No intracranial hemorrhage. No significant midline shift. Ventricles and sulci are globally prominent. Scattered foci of low attenuation within the white matter. IMPRESSION: * No acute intracranial hemorrhage. * Scattered regions of low attenuation within the white matter. Non-specific in nature but a common finding and frequently secondary to small vessel ischemic disease. If there is high concern for acut e causes clinically MRI can better assess acuity. Electronically signed by: Girish Liz MD (05/23/2021 9:21 PM) [id number]
[2021-05-23] MEDS ORDERED: KETOROLAC 30 MG/ML VIAL. IVP ONE (22:00)
[2021-05-23] MEDS ORDERED: methylPREDNISolone SOD SUCC PF 125 MG/2 ML VIAL. IV ONE (22:00)
[2021-05-23] MEDS ORDERED: BUTA1TAB23 PO (22:48)
[2021-05-23 23:03] VITALS: BP 141/96
== END 2021-05-23 23:20 | disposition home or self-care (01) ==
LOC: ER 18:25
DX: R51.9 Headache, unspecified (principal); I10 Essential (primary) hypertension; Z87.891 Personal history of nicotine dependence
CPT/HCPCS: 36415; 70450; 80053; 83735; 85025; 85651; 86140; 96374; 96375; 99285; J1885; J2930

== ENCOUNTER 2021-06-12 06:54 | Emergency (ER) | payer SELFPAY ==
[~2021-06-12] VITALS: Ht 180.3 cm; Wt 93.5 kg
[~2021-06-12 06:54] MED LIST changes: +BUTA1TAB23 PO
[2021-06-12 07:14] VITALS: BP 162/107
[2021-06-12] MEDS ORDERED: AMLO-186 PO (07:55)
--- NOTE | 2021-06-12 07:55 | PHYS DOC ---
Past Medical History Past Medical History: Kidney Stone, Other Additional Past Medical Histor: BLOOD CLOTS, KIDNEY STONES Past Surgical History: Other Additional Past Surgical Histo: LITHOTRIPSY, HERNIA REPAIR Smoking Status: Never Smoker Alcohol Use: Occasionally Drug Use: None General Adult EDM: Chief Complaint: HYPERTENSION HPI: HPI: 56-year-old male presents the emergency department complaining of elevated blood pressure without any symptoms. He reports that he has been taking his blood pressure at home over the last several days and has been elevated. He wants to get his blood pressure more under control before he visits his primary care physician in June, states he has a primary care doctor and has an appointment scheduled and is looking to move this up. He presents today requesting medication for his blood pressure. He reports intermittent shortness of breath over a long period of time that is secondary to his previous smoking. The patient denies headache, nausea, vomiting, fever, chills, chest pain, ab dominal pain, urinary symptoms, cough, recent trauma, or any other complaints. Review of Systems: Review of Systems: ROS is otherwise negative except what was mentioned in the HPI Heart Score: C/O Chest Pain: No Allergies: Allergies: Allergies Coded Allergies Type Severity Reaction Last Updated Verified No Known Drug Allergies 06/12/21 No Physical Exam: PE: Constitutional: No acute distress, non-toxic appearance. HENT: Atraumatic, bilateral external ears normal, nose normal. Eyes: PERRLA, EOMI, conjunctiva normal, no discharge. Neck: Normal range of motion, supple, no stridor. Cardiovascular: Heart rate regular rhythm. 2+ radial pulses Lungs & Thorax: No respiratory distress, symmetrical expansion. Bilateral breath sounds clear to auscultation Abdomen: Soft, no tenderness Skin: Warm, dry. Extremities: No tenderness, no cyanosis, ROM intact, no edema. Neurologic: Alert and oriented X 3, normal motor function, normal sensory function, no focal deficits noted. Non ataxic gait. GCS 15. Psychologic: Affect normal, judgment normal, mood normal. Current Patient Data: Labs: Laboratory Tests Test 06/12/21 07:57 Sodium Level 144 mmol/L (136-145) Potassium Level 4.4 mmol/L (3.5-5.1) Chloride Level 106 mmol/L (98-107) Carbon Dioxide Level 28 mmol/L (21-32) Anion Gap 10 (6-14) Blood Urea Nitrogen 13 mg/dL (8-26) Creatinine 1.2 mg/dL (0.7-1.3) Estimated GFR (Cockcroft-Gault) 75.5 Glucose Level 128 mg/dL (70-99) Calcium Level 9.0 mg/dL (8.5-10.1) Vital Signs: Vital Signs Date Time Temp Pulse Resp B/P (MAP) Pulse Ox O2 Delivery O2 Flow Rate FiO2 06/12/21 07:14 98.2 96 16 162/107 (111) 96 Room Air 98.2 Course & Med Decision Making: Course & Med Decision Making Patient has no evidence of acute end organ damage from hypertension. I counseled the patient on their high blood pressure and the need to follow-up in the clinic to get this addressed. He has an appoint with her primary care doctor and will call for a sooner appointment. We will start the patient on amlodipine today fo r 1 month. He was advised return to the emergency department if he has any further symptoms and to continue to check his blood pressure at home. He is well aware and demonstrated understanding that he needs to improve his lifestyle including losing weight and improving his diet. Departure Departure Impression: Primary Impression: Elevated blood pressure reading Disposition: HOME / SELF CARE / HOMELESS Condition: GOOD Referrals: VIRGINIA CRUZ,AYANNA Moreno MD (PCP) Patient Instructions: Hypertension, [id number] Additional Instructions: You were seen in the emergency department for hypertension, or high blood pressure. You need to follow up with the medicine clinic or your primary care doctor for further evaluation and treatment of your blood pressure. You should return to the ED if you develop chest pain, shortness of breath, severe headache, or any other new or concerning symptoms. We started you on a low dose of blood pressure medication, but you may need more than one medication and should have a primary doctor that can further investigate your blood pressure issues. Losing some weight and improving your diet will be helpful in reducing your blood pressure as well. Scripts Amlodipine Besylate (AMLODIPINE BESYLATE) 5 Mg Tablet 5 MG PO DAILY for 30 Days, #30 TAB Prov: RAHEL ZUNIGA DO 06/12/21 RAHEL ZUNIGA DO Jun 12, 2021 07:55
[2021-06-12 08:13] LABS: CREATININE 1.2 mg/dL (0.7-1.3); GFR 75.5; POTASSIUM 4.4 mmol/L (3.5-5.1)
== END 2021-06-12 08:26 | disposition home or self-care (01) ==
LOC: ER 06:54
DX: R03.0 Elevated blood-pressure reading, without diagnosis of hypertension (principal)
CPT/HCPCS: 36415; 80048; 99283